=== PATIENT | male | born 1975 | race Caucasian/White ===

== ENCOUNTER 2017-05-16 15:58 | Emergency (ER) | payer BC, OTHER ==
--- NOTE | 2017-05-16 16:23 | EDM.PDOC ---
ED HPI GENERAL MEDICAL PROBLEM - General Chief Complaint: Upper Extremity Injury/Pain Stated Complaint: RIGHT HAND NUMBNESS Time Seen by Provider: 05/16/17 16:14 Source of Information: Reports: Patient History Limitations: Reports: No Limitations - History of Present Illness INITIAL COMMENTS - FREE TEXT/NARRATIVE: History of present illness: []Patient is a right-handed male that has been having right hand numbness for months that is progressively worsening. 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 He complains of numbness mostly in the thumb index and middle finger radiating to his elbow up to his mid back between her shoulder blades. Any neck pain or trauma. His numbness generally is not worse at night but it does occur all throughout the day and night. Review of systems: As per history of present illness and below otherwise all systems reviewed and negative. Past medical history: As per history of present illness and as reviewed below otherwise noncontributory. Surgical history: As per history of present illness and as reviewed below otherwise noncontributory. Social history: No reported history of drug or alcohol abuse. Family history: As per history of present illness and as reviewed below otherwise noncontributory. Physical exam: General: Well developed, well nourished in NAD HEENT: Atraumatic, normocephalic, pupils reactive, negative for conjunctival pallor or scleral icterus, mucous membranes moist, throat clear, neck supple, nontender, trachea midline. No cervical tenderness Lungs: Clear to auscultation, breath sounds equal bilaterally, chest nontender. Patient does have palpable muscular tenderness over his right shoulder blade Heart: S1S2, regular, negative for clicks, rubs, or JVD. Abdomen: Soft, nondistended, nontender. Negative for masses or hepatosplenomegaly. Negative for costovertebral tenderness. Pelvis: Stable nontender. Genitourinary: Deferred. Rectal: Deferred. Extremities: Atraumatic, negative for cords or calf pain. Neurovascular unremarkable. Neuro: Awake, alert, oriented. Cranial nerves II through XII unremarkable. Cerebellum unremarkable. Motor and sensory unremarkable throughout. Exam nonfocal. 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 Norflex ibuprofen and tramadol for pain and spasm Definitive disposition and diagnosis as appropriate pending reevaluation and review of above. Right hand Pain Score (Numeric/FACES): 6 - Related Data Allergies Allergy/AdvReac Type Severity Reaction Status Date / Time No Known Allergies Allergy Verified 05/16/17 16:11 Home Meds: Home Meds Orphenadrine [Norflex] 100 mg PO QID PRN #16 tab.er 05/16/17 [Rx] traMADol HCl [Tramadol HCl] 50 mg PO Q6H PRN #16 tablet 05/16/17 [Rx] Past Medical History - Past Health History Medical/Surgical History: Denies Medical/Surgical History Social & Family History - Family History Family Medical History: Noncontributory - Tobacco Use Smoking Status *Q: Current Every Day Smoker Years of Tobacco use: 20 Packs/Tins Daily: 1 - Alcohol Use Number of Drinks Per Day: 2 - Recreational Drug Use Recreational Drug Use: No Review of Systems - Review of Systems Review Of Systems: See Below (See history of present illness) ED EXAM, GENERAL - Physical Exam Exam: See Below (See history of present illness) Course - Vital Signs Last Recorded V/S: Last Vital Signs Temp 98.7 F 05/16/17 16:18 Pulse 73 05/16/17 16:18 Resp 18 05/16/17 16:18 BP 123/84 05/16/17 16:18 Pulse Ox 95 05/16/17 16:18 - Orders/Labs/Meds Orders: Active Orders 24 hr Category Date Time Status Splinting [RC] ASDIRECTED Care 05/16/17 17:16 Active Cervical Spine 2V or 3V [CR] Stat Exams 05/16/17 16:24 Taken Orphenadrine [Norflex] Med 05/16/17 16:30 Active 60 mg IM Q12H Medication Orders Orphenadrine Citrate (Norflex) 60 mg IM Q12H MARGUERITE Last Admin: 05/16/17 16:44 Dose: 60 mg Meds: Medications Generic Name Dose Route Start Last Admin Trade Name Freq PRN Reason Stop Dose Admin Orphenadrine Citrate 60 mg 05/16/17 16:30 05/16/17 16:44 Norflex IM 60 mg Q12H MARGUERITE Administration Departure - Departure Time of Disposition: 17:40 Disposition: Home, Self-Care 01 Condition: Good 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 Qualified Code(s): G56.11 - Other lesions of median nerve, right upper limb - Discharge Information Prescriptions: Orphenadrine [Norflex] 100 mg PO QID PRN #16 tab.er PRN Reason: Spasms traMADol HCl [Tramadol HCl] 50 mg PO Q6H PRN #16 tablet PRN Reason: Pain Referrals: PCP,None [Primary Care Provider] - Forms: ED Department Discharge - My Orders Last 24 Hours: My Active Orders 05/16/17 16:24 Cervical Spine 2V or 3V [CR] Stat 05/16/17 16:30 Orphenadrine [Norflex] 60 mg IM Q12H 05/16/17 17:16 Splinting [RC] ASDIRECTED - Assessment/Plan Last 24 Hours: My Active Orders 05/16/17 16:24 Cervical Spine 2V or 3V [CR] Stat 05/16/17 16:30 Orphenadrine [Norflex] 60 mg IM Q12H 05/16/17 17:16 Splinting [RC] ASDIRECTED
[2017-05-16 18:23] VITALS: BP 124/76
--- NOTE | 2017-05-17 09:35 | CR ---
EXAM DATE: 05/16/17 PATIENT'S AGE: 41 Patient: ROSAS MICHEL Facility: [place], [place] Site . Site : [id number] Study: XRay Spine Cervical [id number]/[id number] 5:13:48 PM Ordering Physician: Octavio Lees Final Report: HISTORY: Right shoulder pain that radiates to the neck and down right arm. 1-3 digits of right hand are none. FINDINGS: Open-mouth, AP and lateral radiographs of the cervical spine demonstrate the base of the dens is intact. Lateral masses are situated normally on C2. The atlantodens interval is normal. The prevertebral soft tissues are normal. There is mild decreased lordosis present. There is mild to moderate decreased disc space and peridiscal spurring seen at C6-7. No subluxation is seen. IMPRESSION: Degenerative changes of the discs at C6-7. Dictated by Stephanie Baker MD @ 05/16/2017 5:44:36 PM Dictated by: Stephanie Baker MD @ 05/16/2017 17:45:07 (Electronic Signature) Report Signed by Proxy. WILLAM
== END 2017-05-16 17:50 | disposition home or self-care (01) ==
LOC: MW.ED 15:58
DX: S64.11XA Injury of median nerve at wrist and hand level of right arm, initial encounter (principal); G56.11 Other lesions of median nerve, right upper limb; F17.210 Nicotine dependence, cigarettes, uncomplicated; X50.0XXA Overexertion from strenuous movement or load, initial encounter
CPT/HCPCS: 72040; 96372; 99283; J2360